=== PATIENT | male | born 1945 | race Caucasian/White ===

== ENCOUNTER 2018-03-09 20:07 | Emergency (ER) | payer MEDICARE, BC ==
[~2018-03-09] VITALS: Ht 180.3 cm; Wt 82.6 kg
[~2018-03-09 20:07] MED LIST: ASPIRIN325 MG PO; BABY ASPIRIN81 MG PO; LIPITOR10 MG PO; LISINOPRIL5 MG PO; PLAVIX75 MG PO; ZESTRIL40 MG PO
[2018-03-09] MEDS ORDERED: BRILINTA90 MG (20:11)
[2018-03-09] MEDS ORDERED: TOPROL XL25 MG (20:11)
[2018-03-09 20:12] VITALS: Ht 180.3 cm; Wt 82.6 kg
[2018-03-09 20:31] LABS: BASOPHILS 0.8 % (0-2); EOSINOPHILS 2.6 % (0-7); HEMATOCRIT 46.5 % (42.0-54.0); HEMOGLOBIN 16.4 g/dL (13.5-17.5); IMMATURE GRANULOCYTES 0.3 % (0-5); LYMPHOCYTES 29.2 % (15-50); MCH 33.5 pg (26.0-34.0); MCHC 35.3 g/dL (31.0-37.0); MCV 95.1 fL (80.0-100.0); MEAN PLATELET VOLUME 11.2 fL (7.4-10.4); MONOCYTES 6.2 % (2-11); NEUTROPHILS 60.9 % (40-80); PLATELET COUNT 197 10x3/uL (130-400); RBC 4.89 10x6/uL (4.20-6.10); RDW 13.2 % (11.5-14.5); WBC 11.8 10x3/uL (4.8-10.8)
[2018-03-09 20:35] LABS: INR 1.13 (0.85-1.17); PROTIME 14.1 SECONDS (11.6-15.0)
[2018-03-09 20:43] LABS: ALBUMIN 3.4 g/dL (3.4-5.0); ANION GAP 12.8 mmol/L (8-16); BILIRUBIN - TOTAL 0.47 mg/dL (0.2-1.3); CALCIUM 9.3 mg/dL (8.5-10.1); CARBON DIOXIDE 27.8 mmol/L (21.0-32.0); CREATININE - SERUM 1.6 mg/dL (0.6-1.3); POTASSIUM - SERUM 3.6 mmol/L (3.5-5.1); PROTEIN - SERUM 6.9 g/dL (6.4-8.2)
[2018-03-09 23:15] VITALS: BP 128/63
== END 2018-03-09 23:35 | disposition other institution (70) ==
LOC: D.ER 20:07
PROVIDERS: Family Medicine
DX: R47.1 Dysarthria and anarthria (principal); I63.9 Cerebral infarction, unspecified; R47.01 Aphasia; F17.200 Nicotine dependence, unspecified, uncomplicated

== ENCOUNTER → 2020-01-25 11:29 | Outpatient (CLI) | payer MEDICARE, BC ==
[~2020-01-25] VITALS: Ht 180.3 cm; Wt 75.3 kg
--- NOTE | ~2020-01-25 | HEMODYNAMI ---
PATIENT:CAMMIE NAVARRETE MEDICAL RECORD: [id number] : 47 LOCATION:[facility] ADMISSION DATE: 01/25/20 Generatedon:01/25/202014:03 Patient name: CAMMIE NAVARRETE Patient #: [id number] SSN: [id number] : 1945 Date of study: 01/25/2020 Page: Of Hemodynamic Procedure Report Patient Data Patient Demographics Procedure consent was obtained First Name: CAMMIE Gender: Male Last Name: ROSALBA : 1945 Patient #: [id number] Age: 74 year(s) Race: SSN: [id number] Additional ID: [id number] Contact details [address]: [address] [place] [address] State: [place] City: [place] Zip code: [address] Past Medical History Allergies: No known allergies Admission Admission Data Admission Date: 01/25/2020 Admission Time: 11:29 Insurance Payor: Medicare Height (in.): 71 BSA: 1.95 (m2) Height (cm.): 180.34 BMI: 23.15 (kg/m2) Weight (lbs.): 166 Weight (kg.): 75.3 Lab Results Lab Result Date: 01/25/2020 Lab Result Time: 0:00 CBC Name Units Result Min Max Hematocrit % 47.6 --(-*--)-- 42 54 Hemoglobin g/dl 15.7 --(--*-)-- 13.5 17.5 Procedure Procedure Types Cath Procedure Diagnostic Procedure Cardioversion External Procedure Description Procedure Date Procedure Date: 01/25/2020 Procedure Start Time: 13:41 Procedure End Time: 14:01 Procedure Staff Name Function Ida Nguyễn RN Nurse Marli Camacho RN Monitor Marco Verdugo MD Performing Physician Misael Betancourt CRNA Additional personnel Procedure Data Procedure Complications No complications Procedure Medications Medication Administration Route Dosage 0.9% NaCl I.V. 100 ml/hr Oxygen NC 3 l/min Refer to Anesthesia Notes for Sedation Medications Hemodynamics Rest BSA: 1.95 (m2) HGB: 15.7 (g/dl) O2 Consumption: Estimated: 229.98 (ml/min) O2 Consumption indexed: Estimated:117.94 (ml/min/m) Heart Rate: 77 (bpm) Snapshots Pre Cath Intra NCS Post Cath Vital Signs Time Heart Resp SPO2 etCO2 NIBP (mmHg) Rhythm Pain Sedation Rate (ipm) (%) (mmHg) Status Level (bpm) 13:29:08 67 15 98 2.9 144/95(113) NSR 0 (11) 10(A) , No pain 13:33:32 72 14 99 0 134/75(122) NSR 0 (11) 10(A) , No pain 13:37:46 78 17 99 11.9 143/88(127) NSR 0 (11) 10(A) , No pain 13:42:45 89 23 98 9.7 Measuring NSR 0 (11) 10(A) , No pain 13:45:56 86 12 92 0 127/88(107) NSR 0 (11) 9(A) , No pain 13:48:46 49 16 99 11.9 132/69(103) NSR 0 (11) 9(A) , No pain 13:51:19 83 30 94 0 118/73(91) NSR 0 (11) 9(A) , No pain 13:55:27 94 12 89 0 126/88(116) NSR 0 (11) 9(A) , No pain 14:00:08 79 18 0 129/39(60) NSR 0 (11) 9(A) , No pain Medications Time Medication Route Dose Verified Delivered Reason Notes Effectiven ess by by 13:34:18 0.9% NaCl I.V. 100 Misael Misael used for ml/hr Serafin Serafin procedure [employer] 13:34:29 Oxygen NC 3 Misael Ida for low l/min Serafin Delma 02 sats ARSENIO RN 13:34:42 Refer to Misael Misael for Anesthesia Serafin Serafin sedation Notes for [employer] Sedation Medications Procedure Log Time Note 13:14:16 Informed consent obtained and on chart 13:16:24 Ida Nguyễn RN sent for patient. Start room use. 13:16:28 Time tracking: Regular hours (M-F 7:00 - 5:00) 13:16:33 Plan of Care:Hemodynamics will remain stable., Cardiac rhythm will remain stable., Comfort level will be maintained., Respiratory function will remain adequate., Patient/ family verbilizes understanding of procedure., Procedure tolerated without complication., Recovers from procedure without complications.. 13:16:41 H&P Date Dictated: 01/25/2020 Within 30 days and on chart.. 13:17:58 Patient allergic to No known allergies 13:18:17 Patient Height : 71 inches 13:18:22 Patient Weight : 166 lbs 13:18:36 Insurance Payor : Medicare 13:18:55 Lab Result : Hematocrit 47.6 % 13:18:55 Lab Result : Hemoglobin 15.7 g/dl 13:19:01 Diagnostic Cath Status : Elective 13:19:19 Full Disclosure recording started 13:19:24 Patient diabetic? No. 13:19:26 If diabetic: On Metformin? N/A 13:19:38 Patient received from Pre/Post Procedure Room to CCL 1 Alert and oriented. Tansferred to table in Supine position. 13:19:40 Warm blankets applied, and jb hugger turned on for patient comfort. 13:19:41 Correct patient and procedure confirmed by team. 13:19:43 ECG and BP/O2 sat monitors applied to patient. 13:19:46 Pre-procedure instructions explained to patient. 13:19:47 Pre-op teaching completed and patient verbalized understanding. 13:20:22 Family unavailable. 13:20:24 Patient NPO since Midnight. 13:20:32 Is the patient allergic to Iodine/contrast media? N/A. 13:20:39 Previous problem with sedation/anesthesia? No ? 13:20:42 Snore? Yes 13:20:43 Sleep apnea? No 13:20:45 Deviated septum? No 13:20:46 Opens mouth fully? Yes 13:20:48 Sticks out tongue? Yes 13:20:57 Airway obstruction? No ? 13:21:04 Dentures? Yes PARTIAL IN TIGHT 13:21:14 IV patent on arrival in right hand with 0.9% NaCl at [facility]. 13:21:32 Stress Test: no; N/A ? 13:21:48 Alarms reviewed by RVivian NVivian 13:22:39 Misael Betancourt CRNA present and monitoring patient for TIVA. 13:25:28 Quick combo pads placed on patients chest and back. 13:26:37 Baseline sample Acquired. 13:26:47 Rhythm: atrial fibrillation 13:28:02 Vital chart was started 13:34:18 0.9% NaCl 100 ml/hr I.V. was administered by Misael Betancourt CRNA; used for procedure; Verbal order read back and verified. 13:34:29 Oxygen 3 l/min NC was administered by Ida Nguyễn RN; for low 02 sats; Verbal order read back and verified. 13:34:42 Refer to Anesthesia Notes for Sedation Medications was administered by Misael Betancourt CRNA; for sedation; Verbal order read back and verified. 13:39:52 --------ALL STOP TIME OUT------ 13:39:52 Final Timeout: patient, procedure, and site verified with staff and physician. All members of the team are in agreement. 13:40:13 Fire Safety Assessment: B--The operative or invasive procedure is being performed above the xiphoid process or in the oropharynx., C--Open oxygen or nitrous oxide is being used., D--An ESU, laser, or fiber-optic light is being used., E--There are other possible contributors. 13:40:20 Physical assessment completed. ASA score P 2 - A patient with mild systemic disease as per Marco Verdugo MD. 13:40:27 Sedation plan: TIVA Medication:Propofol 13:41:00 Procedure started. 13:42:55 Defibrillator synced and charged to 200 Joules. 13:43:09 Shock delivered. 13:47:43 Defibrillator synced and charged to 300 Joules. 13:47:46 Shock delivered. 13:50:10 Defibrillator synced and charged to 360 Joules. 13:50:11 Shock delivered. 13:51:37 Unsuccessful cardioversion. 13:51:41 Patient cardioverted to unchanged.. 13:52:42 Procedure ended.(Physican Out) 13:52:49 Operative report dictated upon procedure completion. 13:52:49 See physician's report for complete and final results. 13:52:58 Procedure Complication : No complications 14:01:20 Vital chart was stopped 14::25 Report given to Pre/Post Procedure Room. 14::29 Patient transfered to Pre/Post Procedure Room with Stretcher. 14:01:32 Procedure ended. 14:01:32 Full Disclosure recording stopped 14:01:36 End room use (Document Last) 14:01:47 End room use (Document Last) 14:02:22 End room use (Document Last) Signature Audit Shirley Stage Time Signature Unsigned Intra-Procedure 01/25/2020 Marli Camacho 2:01:47 PM RN Intra-Procedure 01/25/2020 Ida 2:02:23 PM Delma RN Intra-Procedure 01/25/2020 Marco Verdugo MD 2:02:[address] [id number]
[~2020-01-25 11:29] MED LIST changes: +BAYER CHEWABLE81 MG PO; +BETAPACE 80 MG80 MG PO; +BRILINTA90 MG; +ELIQUIS5 MG PO; +TOPROL XL25 MG
[2020-01-25 12:33] VITALS: BP 151/91; Ht 180.3 cm; Wt 75.3 kg
[2020-01-25 12:45] LABS: ANION GAP 10.4 mmol/L (8-16); CALCIUM 8.7 mg/dL (8.5-10.1); CARBON DIOXIDE 28.8 mmol/L (21.0-32.0); CREATININE - SERUM 1.2 mg/dL (0.6-1.3); INR 1.32 (0.85-1.17); POTASSIUM - SERUM 4.2 mmol/L (3.5-5.1); PROTIME 16.3 SECONDS (11.6-15.0)
[2020-01-25 13:07] LABS: BASOPHILS 0.9 % (0-2); HEMATOCRIT 47.6 % (42.0-54.0); HEMOGLOBIN 15.7 g/dL (13.5-17.5); IMMATURE GRANULOCYTES 0.3 % (0-5); LYMPHOCYTES 29.9 % (15-50); MCH 32.8 pg (26.0-34.0); MCV 99.4 fL (80.0-100.0); MEAN PLATELET VOLUME 11.8 fL (7.4-10.4); MONOCYTES 8.7 % (2-11); NEUTROPHILS 58.2 % (40-80); PLATELET COUNT 174 10x3/uL (130-400); RBC 4.79 10x6/uL (4.20-6.10); RDW 13.9 % (11.5-14.5); WBC 7.5 10x3/uL (4.8-10.8)
--- NOTE | 2020-01-25 14:00 | NUR ---
PT REC'D TO ROOM 12 VIA STRETCHER FROM DRAW [employer]ING [facility]. PT IS AWAKE, DROWSY. MONITORS ESTAB. SEE [employer]. CM - CAF. ALARMS ON AND C/L IN REACH.
--- NOTE | 2020-01-25 14:15 | NUR ---
PT SPOKE WITH LIAT WHO IS PICKING HIM UP, PLAN FOR D/C AT 1500. CM - CAF, HR 73. PT DENIES NEEDS. C/L IN REACH.
--- NOTE | 2020-01-25 14:45 | NUR ---
CM - CAF HR 76. PT REFUSED SANDWICH TRAY. STATED "I'LL EAT WHEN I GET HOME. PIV D/C'D INTACT, DSG APPLIED. PT ALLOWED UP TO GET DRESSED.
--- NOTE | 2020-01-25 14:55 | NUR ---
ALL DISCHARGE INSTRUCTIONS REVIEWED WITH PT, INCLUDING RESTRICTIONS, CONT HOME MEDS AND FOLLOW UP APPT.
--- NOTE | 2020-01-25 14:58 | NUR ---
PT DISCHARGED VIA WC TO PRIVATE VEHICLE. PT HAS ALL BELONGINGS AND PAPER WORK.
== END | disposition home or self-care (01) ==
LOC: D.CATH 11:29
PROVIDERS: ATTEND Internal Medicine Cardiovascular Disease
DX: I25.119 Atherosclerotic heart disease of native coronary artery with unspecified angina pectoris (principal); I10 Essential (primary) hypertension; I48.91 Unspecified atrial fibrillation; Z72.0 Tobacco use